=== PATIENT | male | born 1990 | race Caucasian/White ===

== ENCOUNTER 2016-11-13 15:19 | Emergency (ER) | payer SELFPAY ==
--- NOTE | 2016-11-13 15:32 | ER Document Report ---
ED Medical Screen (RME) - General Stated Complaint: LEFT EYE PAIN Notes: 26 yo male c/o left eye pain since yesterday. + body welder's flash. + tearing. + photosensitivity. noncontact wearer. no sig PMHx. TRAVEL OUTSIDE OF THE [place] IN LAST 30 DAYS: No - Related Data Allergies/Adverse Reactions: No Known Allergies Allergy (Verified 11/13/16 15:30) Past Medical History Musculoskeltal Medical History: Reports Hx Musculoskeletal Deformity, Reports Hx Musculoskeletal Trauma Psychiatric Medical History: Reports: Hx Anxiety, Hx Attention Deficit Hyperactivity Disorder, Hx Bipolar Disorder, Hx Depression Traumatic Medical History: Reports: Hx Fractures - coccyx Past Surgical History: Reports: Hx Orthopedic Surgery - Immunizations Immunizations up to date: Yes Hx Diphtheria, Pertussis, Tetanus Vaccination: Yes Physical Exam - Vital signs Vitals: Temp Pulse Resp BP Pulse Ox 98.0 F 108 H 16 113/68 98 11/13/16 15:28 11/13/16 15:28 11/13/16 15:28 11/13/16 15:28 11/13/16 15:28 Course - Vital Signs Vital signs: Temp Pulse Resp BP Pulse Ox 98.0 F 108 H 16 113/68 98 11/13/16 15:28 11/13/16 15:28 11/13/16 15:28 11/13/16 15:28 11/13/16 15:28
[2016-11-13] MEDS ORDERED: OXYCODONE-ACETAMINOPHEN 5-325 MG TABLET PO ONE (15:41)
--- NOTE | 2016-11-13 17:56 | ER Document Report ---
ED Eye Complaint - General Chief Complaint: Eye Injury Stated Complaint: LEFT EYE PAIN Notes: This is a 26-year-old male that presents today with left eye pain. He states that yesterday around 1500 in the afternoon he was helping a friend weld car. He states that he looked at the moment his friend started to weld only with his left eye. He admits to light sensitivity, burning, and itching. Constant 6 out of 10 pain. He denies foreign body sensation. He is not a contact lens wearer. He admits to blurred vision in the left eye. TRAVEL OUTSIDE OF THE [place] IN LAST 30 DAYS: No - Related Data Allergies/Adverse Reactions: hydrocodone Allergy (Verified 11/13/16 15:35) alexey hips Allergy (Verified 11/13/16 15:35) Bee Sting Allergy (Uncoded 11/13/16 15:35) Past Medical History - General Information source: Patient - Social History Smoking Status: Current Every Day Smoker Chew tobacco use (# tins/day): No Frequency of alcohol use: None Drug Abuse: Marijuana Family History: Reviewed & Not Pertinent Patient has suicidal ideation: No Patient has homicidal ideation: No Renal/ Medical History: Denies: Hx Peritoneal Dialysis Musculoskeltal Medical History: Reports Hx Musculoskeletal Deformity, Reports Hx Musculoskeletal Trauma Psychiatric Medical History: Reports: Hx Anxiety, Hx Attention Deficit Hyperactivity Disorder, Hx Bipolar Disorder, Hx Depression Traumatic Medical History: Reports: Hx Fractures - coccyx Past Surgical History: Reports: Hx Orthopedic Surgery - Immunizations Immunizations up to date: Yes Hx Diphtheria, Pertussis, Tetanus Vaccination: Yes Review of Systems - Review of Systems Constitutional: denies: Chills, Fever EENT: See HPI, Blurred vision Cardiovascular: No symptoms reported Respiratory: No symptoms reported Gastrointestinal: No symptoms reported Genitourinary: No symptoms reported Musculoskeletal: No symptoms reported Skin: No symptoms reported Hematologic/Lymphatic: No symptoms reported Neurological/Psychological: No symptoms reported Physical Exam - Vital signs Vitals: Temp Pulse Resp BP Pulse Ox 98.0 F 108 H 16 113/68 98 11/13/16 15:28 11/13/16 15:28 11/13/16 15:28 11/13/16 15:28 11/13/16 15:28 - General General appearance: Appears well In distress: None - HEENT Head: Normocephalic, Atraumatic Visual acuity- Right eye: 20/40 Visual acuity- Left eye: 20/100 Visual acuity- Both eyes: 20/50 Corrective lenses worn: No - Respiratory Respiratory status: No respiratory distress Chest status: Nontender Breath sounds: Normal. No: Rales, Rhonchi, Stridor, Wheezing - Cardiovascular Rhythm: Regular Heart sounds: Normal auscultation - Abdominal Bowel sounds: Normal Tenderness: Nontender - Extremities General upper extremity: Normal inspection General lower extremity: Normal inspection - Neurological Cognition: Normal. No: Confused - Psychological Associated symptoms: Normal affect, Normal mood - Skin Skin Temperature: Warm Skin Moisture: Dry Skin Color: Normal Course - Re-evaluation Re-evalutation: 11/13/16 18:26 Wood's lamp was done on the left eye. No corneal patient or ulcer was seen. No foreign bodies seen on exam. Patient was advised to follow-up with flight manager. He stated that he would. - Vital Signs Vital signs: Temp Pulse Resp BP Pulse Ox 98.2 F 64 16 84/45 L 95 11/13/16 18:52 11/13/16 18:52 11/13/16 15:28 11/13/16 18:52 11/13/16 18:52 Discharge - Discharge Clinical Impression: Pain, eye, left Condition: Good Disposition: HOME, SELF-CARE Additional Instructions: Return to the emergency department if symptoms worsen. Follow-up with primary care physician as soon as possible. Prescriptions: Besifloxacin HCl [Besivance 0.6% Oph Susp 5 ml] 1 drop OP TID #1 bottle Referrals: [facility] [Provider Group] - Follow up as needed
[2016-11-13 19:16] VITALS: BP 84/45
== END 2016-11-13 18:53 | disposition home or self-care (01) ==
LOC: ER 15:19
DX: H57.12 Ocular pain, left eye (principal); H53.149 Visual discomfort, unspecified; H53.8 Other visual disturbances; L29.8 Other pruritus; F17.200 Nicotine dependence, unspecified, uncomplicated; Z88.5 Allergy status to narcotic agent; Z91.030 Bee allergy status
CPT/HCPCS: 70480; 99283

== ENCOUNTER 2017-03-13 10:06 | Emergency (ER) | payer OTHER ==
[2017-03-13 10:14] VITALS: BP 118/98
[2017-03-13] MEDS ORDERED: PROCHLORPERAZINE MALEATE 10 MG TABLET PO ONE (10:51)
[2017-03-13] MEDS ORDERED: DIPHENHYDRAMINE HCL 50 MG CAPSULE PO ONE (10:51)
[2017-03-13] MEDS ORDERED: IBUPROFEN 800 MG TABLET PO ONE (10:51)
--- NOTE | 2017-03-13 10:51 | ER Document Report ---
ED Headache - General Mode of Arrival: Ambulatory Information source: Patient TRAVEL OUTSIDE OF THE [place] IN LAST 30 DAYS: No - HPI Patient complains to provider of: Headache Associated symptoms: Other - See above <LEONA RINCON - Last Filed: 03/13/17 12:24> <SHALOM GRAMAJO - Last Filed: 03/13/17 21:32> - General Chief Complaint: Headache Stated Complaint: HEADACHE Time Seen by Provider: 03/13/17 10:41 Notes: Patient is a 26 year old male, with a past medical history including anxiety, who presents to the emergency department complaining of a headache onset 3 weeks ago. Patient reports that the pain is located in the back of his head and sometimes moves to behind his eyes, the headaches generally start in the morning and wll subsided for a time in the afternoon before coming back before bed. Patient states he has had similar headaches in the past but they were due to trauma. Patient reports that marijuana and Ibuprofen help with the pain. Patient also complains of numbness in his right middle fingertip. Patient recently started taking Adderall 25mg 2 weeks ago but reports he has taken it in the past and had no side effects. (LEONA RINCON) - Related Data Allergies/Adverse Reactions: hydrocodone Allergy (Verified 03/13/17 10:37) alexey hips Allergy (Verified 03/13/17 10:37) Bee Sting Allergy (Uncoded 03/13/17 10:37) Past Medical History - General Information source: Patient - Social History Smoking Status: Current Every Day Smoker Chew tobacco use (# tins/day): No Frequency of alcohol use: None Drug Abuse: Marijuana Family History: Reviewed & Not Pertinent Patient has suicidal ideation: No Patient has homicidal ideation: No Renal/ Medical History: Denies: Hx Peritoneal Dialysis Musculoskeltal Medical History: Reports Hx Musculoskeletal Deformity, Reports Hx Musculoskeletal Trauma Psychiatric Medical History: Reports: Hx Anxiety, Hx Attention Deficit Hyperactivity Disorder, Hx Bipolar Disorder, Hx Depression Traumatic Medical History: Reports: Hx Fractures - coccyx Past Surgical History: Reports: Hx Orthopedic Surgery - Immunizations Immunizations up to date: Yes Hx Diphtheria, Pertussis, Tetanus Vaccination: Yes <LEONA RINCON - Last Filed: 03/13/17 12:24> Review of Systems - Review of Systems Constitutional: No symptoms reported EENT: No symptoms reported Cardiovascular: No symptoms reported Respiratory: No symptoms reported Gastrointestinal: No symptoms reported Genitourinary: No symptoms reported Male Genitourinary: No symptoms reported Musculoskeletal: No symptoms reported Skin: No symptoms reported Hematologic/Lymphatic: No symptoms reported Neurological/Psychological: See HPI, Headaches, Numbness -: Yes All other systems reviewed and negative <LEONA RINCON - Last Filed: 03/13/17 12:24> Physical Exam - Vital signs Interpretation: Normal - HEENT Head: Normocephalic, Atraumatic Eyes: Normal Extraocular movements intact: Yes - Respiratory Respiratory status: No respiratory distress Chest status: Nontender Breath sounds: Normal Chest palpation: Normal - Cardiovascular Rhythm: Regular Heart sounds: Normal auscultation - Back Back: Normal - Extremities General upper extremity: Other - Splint on right 5th finger General lower extremity: Normal inspection - Neurological Neuro grossly intact: Yes Cognition: Normal Orientation: AAOx4 Adalberto Coma Scale Eye Opening: Spontaneous [place] Coma Scale Verbal: Oriented [place] Coma Scale Motor: Obeys Commands Adalberto Coma Scale Total: 15 Speech: Normal Cranial nerves: Normal Cerebellar coordination: Normal Motor strength normal: LUE, RUE, LLE, RLE Additional motor exam normals: Equal blanket binder Knee - Reflex grade: 2 = Normal <LEONA RINCON - Last Filed: 03/13/17 12:24> - Abdominal Inspection: Normal Distension: No distension - Skin Skin Temperature: Warm Skin Moisture: Dry Skin Color: Normal <SHALOM GRAMAJO - Last Filed: 03/13/17 21:32> - Vital signs Vitals: Temp Pulse BP Pulse Ox 97.8 F 106 H 118/98 H 97 03/13/17 10:13 03/13/17 10:13 03/13/17 10:13 03/13/17 10:13 Course <LEONA RINCON - Last Filed: 03/13/17 12:24> <SHALOM GRAMAJO - Last Filed: 03/13/17 21:32> - Re-evaluation Re-evalutation: 03/13/17 10:53 Classic presentation of cluster headaches in this 26-year-old male who has a headache on setting on the same side of his head going to behind his right eye every day at the same time and then resolving with sleep. No abnormal neurologic symptoms at this time that can be linked to the headache, no change in vision since the presentation of the headache, no head injury, the reported numbness to the distal tip of his third digit on his right hand is spurious and does not correlate with any known headache pattern. Patient was offered injections of Toradol, Compazine and Benadryl to treat this headache, states that he does not want any shots whatsoever. Patient will be treated with pills, does not wish to wait to see if they are effective. Patient will return for fevers, worsening headache, new neurologic symptoms, difficulty speaking or walking and return for stiff neck as well. (SHALOM GRAMAJO) - Vital Signs Vital signs: Temp Pulse Resp BP Pulse Ox 97.8 F 106 H 118/98 H 97 03/13/17 10:13 03/13/17 10:13 03/13/17 10:13 03/13/17 10:13 Discharge <LEONA RINCON - Last Filed: 03/13/17 12:24> <SHALOM GRAMAJO - Last Filed: 03/13/17 21:32> - Discharge Clinical Impression: Cluster headache, intractable Condition: Stable Disposition: HOME, SELF-CARE Instructions: Cluster Headache ([facility]) Additional Instructions: Please return for worsening headache, any fever, stiff neck, difficulty speaking , or any difficulty moving your arms or your leg. Scribe Attestation: 03/13/17 21:32 I personally performed the services described in the documentation, reviewed and edited the documentation which was dictated to the scribe in my presence, and it accurately records my words and actions. (SHALOM GRAMAJO) Scribe Documentation - Scribe Written by Christianne:: christianne Mann, 03/13/17, 1238 acting as scribe for :: Naomi <LEONA RINCON - Last Filed: 03/13/17 12:24>
== END 2017-03-13 11:30 | disposition home or self-care (01) ==
LOC: ER 10:06
DX: G44.89 Other headache syndrome (principal); R20.0 Anesthesia of skin; F41.9 Anxiety disorder, unspecified; F17.200 Nicotine dependence, unspecified, uncomplicated; Z91.030 Bee allergy status
CPT/HCPCS: 99283; S0183

== ENCOUNTER 2017-04-23 14:54 | Emergency (ER) | payer OTHER ==
[2017-04-23 15:06] VITALS: BP 107/71
[2017-04-23] MEDS ORDERED: ONDANSETRON 4 MG TAB.RAPDIS PO ONE (15:13)
[2017-04-23] MEDS ORDERED: OXYCODONE-ACETAMINOPHEN 5-325 MG TABLET PO ONE (15:15)
--- NOTE | 2017-04-23 15:16 | ER Document Report ---
ED Medical Screen (RME) - General Chief Complaint: Abdominal Pain Stated Complaint: ABDOMINAL PAIN Time Seen by Provider: 04/23/17 15:12 Mode of Arrival: Ambulatory Information source: Patient Notes: This is a 26-year-old man with a history of schizophrenia, bipolar affective disorder who presents to the emergency room with left CVA tenderness and left lower quadrant tenderness since last night. The patient does state that he has had pink colored urine. He denies any fever, chills TRAVEL OUTSIDE OF THE [place] IN LAST 30 DAYS: No - HPI Onset: Just prior to arrival Onset/Duration: Sudden Quality of pain: Dull Severity: Moderate Pain Level: 4 Associated Symptoms: Nausea. denies: Chills, Fever, Shortness of breath, Sinus pain/drainage Exacerbated by: Denies Relieved by: Denies Similar symptoms previously: No Recently seen / treated by doctor: No - Related Data Smoking: Non-smoker Frequency of alcohol use: None Drug Abuse: None Allergies/Adverse Reactions: hydrocodone Allergy (Verified 04/23/17 14:59) alxeey hips Allergy (Verified 04/23/17 14:59) Bee Sting Allergy (Uncoded 04/23/17 14:59) Past Medical History - General Information source: Patient - Social History Cigarette use (# per day): No Chew tobacco use (# tins/day): No Frequency of alcohol use: None Drug Abuse: None Lives with: Family Family history: Reviewed & Not Pertinent - Medical History Medical History: Negative Renal/ Medical History: Denies: Hx Peritoneal Dialysis Musculoskeltal Medical History: Reports Hx Musculoskeletal Deformity, Reports Hx Musculoskeletal Trauma Psychiatric Medical History: Reports: Hx Anxiety, Hx Attention Deficit Hyperactivity Disorder, Hx Bipolar Disorder, Hx Depression Traumatic Medical History: Reports: Hx Fractures - coccyx Past Surgical History: Reports: Hx Orthopedic Surgery - Immunizations Immunizations up to date: Yes Hx Diphtheria, Pertussis, Tetanus Vaccination: Yes Review of Systems - Review of Systems Constitutional: denies: Chills, Fever EENT: No symptoms reported Cardiovascular: No symptoms reported Respiratory: No symptoms reported Gastrointestinal: No symptoms reported Genitourinary: No symptoms reported Male Genitourinary: No symptoms reported Musculoskeletal: No symptoms reported Skin: No symptoms reported Hematologic/Lymphatic: No symptoms reported Neurological/Psychological: No symptoms reported Physical Exam - Vital signs Vitals: Temp Pulse Resp BP Pulse Ox 98.0 F 76 14 107/71 98 06/21/17 15:00 04/23/17 15:00 04/23/17 15:00 04/23/17 15:00 04/23/17 15:00 Notes: Physical exam: GENERAL:-year-old man, alert and oriented 3, chills and vomiting and appears in distress. HEAD: Atraumatic, normocephalic. EYES: Pupils equal round and reactive to light, extraocular movements intact, sclera anicteric, conjunctiva are normal. ENT: TMs normal, nares patent, oropharynx clear without exudates. Moist mucous membranes. NECK: Normal range of motion, supple without lymphadenopathy or JVD. LUNGS: Breath sounds clear to auscultation bilaterally and equal. No wheezes rales or rhonchi. HEART: Regular rate and rhythm without murmurs, rubs or gallops. ABDOMEN: Soft, normoactive bowel sounds. CVA tenderness. no guarding, no rebound. No masses appreciated. EXTREMITIES: Normal range of motion, no pitting or edema. No clubbing or cyanosis. NEUROLOGICAL: Cranial nerves II through XII grossly intact. Normal speech, normal gait. PSYCH: Normal mood, normal affect. SKIN: Warm, Dry, normal turgor, no rashes or lesions noted. Course - Vital Signs Vital signs: Temp Pulse Resp BP Pulse Ox 98.0 F 76 14 107/71 98 04/23/17 15:00 04/23/17 15:00 04/23/17 15:00 04/23/17 15:00 04/23/17 15:00 - Laboratory Laboratory results interpreted by me: 04/23/17 16:36 Urine Protein 100 H Urine Ketones TRACE H Urine Blood LARGE H Urine Nitrite POSITIVE H - Diagnostic Test Radiology reviewed: Image reviewed, Reports reviewed - The abdomen shows a left mid ureter. 0.2 mm kidney stone. There is mild hydronephrosis and mild hydroureter Doctor's Discharge - Discharge Clinical Impression: Left ureter stone Condition: Stable Disposition: HOME, SELF-CARE Instructions: Kidney Stone ([facility]) Additional Instructions: Recommendations: Rest, drink plenty of fluids. Pain medicine as prescribed Nausea medicine as needed To the emergency room for worsening pain, fever (temperature greater than 100.5 ) or concerns or getting worse. These stones may take 1-2 weeks for complete passage. Prescriptions: Oxycodone HCl/Acetaminophen [Percocet 5-325 mg Tablet] 1 - 2 tab PO ASDIR PRN # 25 tablet PRN Reason: Promethazine HCl [Phenergan 25 mg Tablet] 25 mg PO Q6H PRN #15 tablet PRN Reason: Referrals: CHELA CORNELIUS MD [GENEVIEVE CAMACHO] - Follow up as needed (This is the number for the urologist who deals with kidney stones. He is affiliated with this [facility].)
--- NOTE | 2017-04-23 16:19 | RADIOLOGY REPORT (SQ) ---
EXAM DESCRIPTION: CT LTD RENAL STONE PROTOCOL ON COMPLETED DATE/TIME: 04/23/2017 3:38 pm REASON FOR STUDY: left flank pain COMPARISON: None. TECHNIQUE: CT scan of the abdomen and pelvis performed without intravenous or oral contrast. Images reviewed with lung, soft tissue, and bone windows. Reconstructed coronal and sagittal MPR images revi ewed. All images stored on PACS. All CT scanners at this facility use dose modulation, iterative reconstruction, and/or weight based d osing when appropriate to reduce radiation dose to as low as reasonably achievable (ALARA). [facility]: Dose Right [facility]: CareDose [facility]: Dose Right [facility]: Teradose 4D [facility]: Smart [employer] RADIATION DOSE: Up-to-date CT equipment and radiation dose reduction techniques were employed. CTDIv ol: 4.8 mGy. DLP: 259 mGy-cm.mGy. LIMITATIONS: None. FINDINGS: LOWER CHEST: No significant findings. No nodules or infiltrates. NON-CONTRASTED LIVER, SPLEEN, ADRENALS: Evaluation limited by lack of IV contrast. No identified sign ificant masses. PANCREAS: No masses. No peripancreatic inflammatory changes. GALLBLADDER: No identified stones by CT criteria. No inflammatory changes to suggest cholecystitis. RIGHT KIDNEY AND URETER: No suspicious masses. Assessment limited by lack of IV contrast. No signif icant calcifications. No hydronephrosis or hydroureter. LEFT KIDNEY AND URETER: No suspicious masses. Assessment limited by lack of IV contrast. There is a 4.2 mm proximal and mid left ureteral stone. There is mild left-sided hydronephrosis. AORTA AND RETROPERITONEUM: No aneurysm. No retroperitoneal masses or adenopathy. BOWEL AND PERITONEAL CAVITY: No obvious masses or inflammatory changes. No free fluid. APPENDIX: Normal. PELVIS, BLADDER, AND ABDOMINAL WALL:No abnormal masses. No free fluid. Bladder normal. BONES: No significant findings. OTHER: No other significant finding. IMPRESSION: 4.2 mm proximal to mid left ureteral stone with mild left-sided hydronephrosis. TECHNICAL DOCUMENTATION: JOB ID: [id number] Quality ID # [id number]: Final reports with documentation of one or more dose reduction techniques (e.g., Au tomated exposure control, adjustment of the mA and/or kV according to patient size, use of iterative reconstruction technique) 2010 [employer]- All Rights Reserved
[2017-04-23 17:08] LABS: APPEARANCE,URINE CLOUDY; BILIRUBIN,URINE NEGATIVE (NEGATIVE); CALCIUM OXALATE CRYSTALS,URINE RARE /HPF; GLUCOSE, URINE NEGATIVE (NEGATIVE); KETONES,URINE TRACE mg/dL (NEGATIVE); LEUKOCYTE ESTERASE,URINE NEGATIVE (NEGATIVE); NITRITE,URINE POSITIVE (NEGATIVE); PROTEIN,URINE 100 mg/dL (NEGATIVE); URINE SPECIFIC GRAVITY 1.021; UROBILINOGEN,URINE NEGATIVE mg/dL (<2.0)
[2017-04-23] MEDS ORDERED: ONDANSETRON ODT 4 MG TAB (6 TAB/DSPK) PO PRN (17:56)
== END 2017-04-23 18:11 | disposition home or self-care (01) ==
LOC: ER 14:54
DX: N20.1 Calculus of ureter (principal); F20.9 Schizophrenia, unspecified; F31.9 Bipolar disorder, unspecified; R10.32 Left lower quadrant pain
CPT/HCPCS: 99284; 81001; 76380; S0119

== ENCOUNTER 2017-05-11 17:07 | Emergency (ER) | payer OTHER ==
[2017-05-11] MEDS ORDERED: KETOROLAC TROMETHAMINE 60 MG/2 ML SDV IM ONE (17:36)
[2017-05-11] MEDS ORDERED: HYDROMORPHONE HCL INJ/PF 2 MG/ML AMPULE IM ONE (17:36)
--- NOTE | 2017-05-11 17:37 | ER Document Report ---
ED Medical Screen (RME) - General Chief Complaint: Possible Kidney Stone Stated Complaint: FLANK PAIN Time Seen by Provider: 05/11/17 17:20 Notes: 26-year-old male recent diagnosis of a 4.2 mm stone presents with complaints of sudden pain, patient notes it is difficult to urinate. Denies any fevers or chills nausea vomiting or diarrhea I have greeted and performed a rapid initial assessment of this patient. A comprehensive ED assessment and evaluation of the patient, analysis of test results and completion of the medical decision making process will be conducted by additional ED providers. PHYSICAL EXAMINATION: GENERAL: Well-appearing, well-nourished and in moderate distress HEAD: Atraumatic, normocephalic. EYES: Pupils equal round extraocular movements intact, conjunctiva are normal. ENT: Nares patent NECK: Normal range of motion LUNGS: No respiratory distress Musculoskeletal: Normal range of motion NEUROLOGICAL: Normal speech, normal gait. PSYCH: Normal mood, normal affect. SKIN: Warm, Dry, normal turgor, no rashes or lesions noted. TRAVEL OUTSIDE OF THE [place] IN LAST 30 DAYS: No - Related Data Allergies/Adverse Reactions: hydrocodone Allergy (Verified 04/23/17 14:59) alexey hips Allergy (Verified 04/23/17 14:59) Bee Sting Allergy (Uncoded 04/23/17 14:59) Past Medical History - Social History Family history: Reviewed & Not Pertinent Renal/ Medical History: Denies: Hx Peritoneal Dialysis Musculoskeltal Medical History: Reports Hx Musculoskeletal Deformity, Reports Hx Musculoskeletal Trauma Psychiatric Medical History: Reports: Hx Anxiety, Hx Attention Deficit Hyperactivity Disorder, Hx Bipolar Disorder, Hx Depression Traumatic Medical History: Reports: Hx Fractures - coccyx Past Surgical History: Reports: Hx Orthopedic Surgery - Immunizations Immunizations up to date: Yes Hx Diphtheria, Pertussis, Tetanus Vaccination: Yes Physical Exam - Vital signs Vitals: Temp Pulse Resp BP Pulse Ox 98 F 105 H 20 119/76 97 05/11/17 17:10 05/11/17 17:10 05/11/17 17:10 05/11/17 17:10 05/11/17 17:10 Course - Vital Signs Vital signs: Temp Pulse Resp BP Pulse Ox 98 F 105 H 20 119/76 97 05/11/17 17:10 05/11/17 17:10 05/11/17 17:10 05/11/17 17:10 05/11/17 17:10
[2017-05-11] MEDS ORDERED: OXYCODONE-ACETAMINOPHEN 5-325 MG TABLET PO ONE (18:26)
--- NOTE | 2017-05-11 18:26 | ER Document Report ---
ED GI/ - General Chief Complaint: Possible Kidney Stone Stated Complaint: FLANK PAIN Time Seen by Provider: 05/11/17 17:20 Mode of Arrival: Ambulatory Information source: Patient Notes: Is a 26-year-old man with a history of a 4.2 mm ureter stone that presents to the emergency room pain this morning. The patient states it was down in the left lower quadrant radiating to the penis. He feels it is quite low at this time. He last urinated shortly before coming to the ER. Any fever, chills, nausea or vomiting. TRAVEL OUTSIDE OF THE [place] IN LAST 30 DAYS: No - HPI Patient complains to provider of: Abdominal pain Onset: Just prior to arrival Timing/Duration: Sudden Quality of pain: No pain Pain Level: Denies Location: LLQ Sexual history: Active Associated symptoms: None Exacerbated by: Denies Relieved by: Denies Similar symptoms previously: Yes Recently seen / treated by doctor: No - Related Data Allergies/Adverse Reactions: hydrocodone Allergy (Verified 04/23/17 14:59) alexey hips Allergy (Verified 04/23/17 14:59) Bee Sting Allergy (Uncoded 04/23/17 14:59) Past Medical History - General Information source: Patient - Social History Smoking Status: Unknown if Ever Smoked Cigarette use (# per day): Yes Chew tobacco use (# tins/day): No - Pack per day Frequency of alcohol use: None Drug Abuse: None Lives with: Family Family History: Reviewed & Not Pertinent Patient has suicidal ideation: No Patient has homicidal ideation: No - Medical History Medical History: Negative Renal/ Medical History: Denies: Hx Peritoneal Dialysis Musculoskeltal Medical History: Reports Hx Musculoskeletal Deformity, Reports Hx Musculoskeletal Trauma Psychiatric Medical History: Reports: Hx Anxiety, Hx Attention Deficit Hyperactivity Disorder, Hx Bipolar Disorder, Hx Depression Traumatic Medical History: Reports: Hx Fractures - coccyx Past Surgical History: Reports: Hx Orthopedic Surgery - Immunizations Immunizations up to date: Yes Hx Diphtheria, Pertussis, Tetanus Vaccination: Yes Review of Systems - Review of Systems Constitutional: denies: Chills, Fever EENT: No symptoms reported Cardiovascular: No symptoms reported Respiratory: No symptoms reported Gastrointestinal: See HPI Genitourinary: No symptoms reported Male Genitourinary: No symptoms reported Musculoskeletal: No symptoms reported Skin: No symptoms reported Hematologic/Lymphatic: No symptoms reported Neurological/Psychological: No symptoms reported Physical Exam - Vital signs Vitals: Temp Pulse Resp BP Pulse Ox 98 F 105 H 20 119/76 97 05/11/17 17:10 05/11/17 17:10 05/11/17 17:10 05/11/17 17:10 05/11/17 17:10 Notes: Physical exam: GENERAL:-year-old man, alert and oriented 3, no acute distress HEAD: Atraumatic, normocephalic. EYES: Pupils equal round and reactive to light, extraocular movements intact, sclera anicteric, conjunctiva are normal. ENT: Moist mucous membranes. NECK: Normal range of motion, supple without lymphadenopathy or JVD. LUNGS: Breath sounds clear to auscultation bilaterally and equal. No wheezes rales or rhonchi. HEART: Regular rate and rhythm without murmurs, rubs or gallops. ABDOMEN: Soft, normoactive bowel sounds. No tenderness to palpation. No guarding, no rebound. No masses appreciated. EXTREMITIES: Normal range of motion, no pitting or edema. No clubbing or cyanosis. NEUROLOGICAL: Cranial nerves II through XII grossly intact. Normal speech, normal gait. PSYCH: Normal mood, normal affect. SKIN: Warm, Dry, normal turgor, no rashes or lesions noted. Ultrasound: No hydronephrosis. The bladder is empty at this time. It is difficult to visualize whether there is a bladder stone. Course - Re-evaluation Re-evalutation: 05/11/17 18:34 Note: I did offer the patient IV fluids with pain medicine. He said he is deathly afraid of needles and does not want them. He states that he will continue to drink p.o. fluids. I have had a long conversation with him about that. He is able to urinate and I do not see any evidence of an obstructive uropathy, so we will try to manage this patient as an outpatient. A 4 mm stone I discussed with him should pass without any intervention. I have given him follow-up number for urologist and he [facility] - Vital Signs Vital signs: Temp Pulse Resp BP Pulse Ox 98 F 105 H 20 119/76 97 05/11/17 17:10 05/11/17 17:10 05/11/17 17:10 05/11/17 17:10 05/11/17 17:10 Discharge - Discharge Clinical Impression: Kidney stone Condition: Stable Disposition: HOME, SELF-CARE Additional Instructions: As we discussed: Take ibuprofen 400 mg every 6 hours Take the Percocet as needed for pain. Your to drink plenty of fluids. You can have coffee: Make sure you drink plenty of water before hand. The ER if you are unable to urinate or if you feel you are having worsening pain. The pain medicine you're taking prescribed as a narcotic. There are several important things you should know about this medicine: 1. This medicine contains Tylenol: It is important that you do not take Tylenol (or acetaminophen) while on this medicine. Tylenol is metabolized by the liver and taking too much Tylenol (acetaminophen) can lay to liver damage and even liver failure. 2. Taking narcotics for too long can lead to physical and mental dependence. Take this medicine only if really needed and in the lowest quantity to achieve pain relief. 3. Do not drink alcohol while on this medicine. Alcohol interacts with narcotics and the combination can be dangerous. 4. Do not drive or operate machinery while on this medicine. 5. Narcotics do cause constipation, so drink plenty of fluids and daily stool softeners. It is recommended that you follow-up with a urologist: [facility] [place] [facility] [address] [place], [place] [phone] [place] [facility] [address]. [place], [place] [phone] Prescriptions: Oxycodone HCl/Acetaminophen [Percocet 5-325 mg Tablet] 1 - 2 tab PO ASDIR PRN # 25 tablet PRN Reason: Referrals: [facility] [Provider Group] - Follow up as needed
[2017-05-11 19:52] VITALS: BP 118/74
== END 2017-05-11 18:35 | disposition home or self-care (01) ==
LOC: ER 17:07
DX: N20.0 Calculus of kidney (principal); R10.32 Left lower quadrant pain; Z91.030 Bee allergy status; Z88.5 Allergy status to narcotic agent; Z72.0 Tobacco use
CPT/HCPCS: 99283

== ENCOUNTER 2017-05-28 14:05 | Emergency (ER) | payer OTHER ==
[2017-05-28 14:15] VITALS: BP 113/67
[2017-05-28] MEDS ORDERED: IBUPROFEN 600 MG TABLET PO ONE (14:29)
[2017-05-28] MEDS ORDERED: OXYCODONE-ACETAMINOPHEN 5-325 MG TABLET PO ONE (14:30)
--- NOTE | 2017-05-28 14:33 | ER Document Report ---
ED General - General Chief Complaint: Flank Pain Stated Complaint: FLANK PAIN Time Seen by Provider: 05/28/17 14:29 Information source: Patient Notes: Patient states he has a history of kidney stones. He states he started yesterday with left flank pain that radiates into his testicle. It is severe and sharp. It is constant. It does feel like previous kidney stone pain. Some nausea no vomiting or diarrhea. No rashes or trauma. TRAVEL OUTSIDE OF THE [place] IN LAST 30 DAYS: No - Related Data Allergies/Adverse Reactions: hydrocodone Allergy (Verified 05/28/17 14:12) alexey hips Allergy (Verified 05/28/17 14:12) Bee Sting Allergy (Uncoded 05/28/17 14:12) Home Medications: Current Home Medications Cariprazine Hydrochloride [Vraylar] 3 mg PO DAILY 05/28/17 [History] Quetiapine Fumarate [Seroquel] 300 mg PO DAILY 05/28/17 [History] Past Medical History - General Information source: Patient - Social History Smoking Status: Current Every Day Smoker Frequency of alcohol use: Occasional Drug Abuse: None Family History: Reviewed & Not Pertinent Renal/ Medical History: Denies: Hx Peritoneal Dialysis Musculoskeltal Medical History: Reports Hx Musculoskeletal Deformity, Reports Hx Musculoskeletal Trauma Psychiatric Medical History: Reports: Hx Anxiety, Hx Attention Deficit Hyperactivity Disorder, Hx Bipolar Disorder, Hx Depression Traumatic Medical History: Reports: Hx Fractures - coccyx Past Surgical History: Reports: Hx Orthopedic Surgery - Immunizations Immunizations up to date: Yes Hx Diphtheria, Pertussis, Tetanus Vaccination: Yes Review of Systems - Review of Systems Constitutional: denies: Chills, Fever Cardiovascular: denies: Chest pain, Palpitations Respiratory: denies: Cough, Short of breath Gastrointestinal: Abdominal pain, Nausea Genitourinary: Burning -: Yes All other systems reviewed and negative Physical Exam - Vital signs Vitals: Temp Pulse Resp BP Pulse Ox 98.6 F 86 16 113/67 97 05/28/17 14:13 05/28/17 14:13 05/28/17 14:13 05/28/17 14:13 05/28/17 14:13 Interpretation: Normal - General General appearance: Appears well, Alert - HEENT Head: Normocephalic, Atraumatic Eyes: Normal Pupils: PERRL - Respiratory Respiratory status: No respiratory distress Chest status: Nontender Breath sounds: Normal Chest palpation: Normal - Cardiovascular Rhythm: Regular Heart sounds: Normal auscultation Murmur: No - Abdominal Inspection: Normal Distension: No distension Bowel sounds: Normal Tenderness: Tender - bilat lq tenderness, no rebound or guarding Organomegaly: No organomegaly - Back Back: Normal, Tender - bilat cva tenderness - Extremities General upper extremity: Normal inspection, Nontender, Normal color, Normal ROM , Normal temperature General lower extremity: Normal inspection, Nontender, Normal color, Normal ROM , Normal temperature, Normal weight bearing. No: Bryanna's sign - Neurological Neuro grossly intact: Yes Cognition: Normal Orientation: AAOx4 [place] Coma Scale Eye Opening: Spontaneous [place] Coma Scale Verbal: Oriented [place] Coma Scale Motor: Obeys Commands [place] Coma Scale Total: 15 Speech: Normal Motor strength normal: LUE, RUE, LLE, RLE Sensory: Normal - Psychological Associated symptoms: Normal affect, Normal mood - Skin Skin Temperature: Warm Skin Moisture: Dry Skin Color: Normal Course - Re-evaluation Re-evalutation: 05/28/17 15:55 pt delcined blood draw. pt understands risks of not being able to diagnose renal impairment, liver dz, infection, electrolyte abnormalities, and other pathology and understands these could lead to permanent disability or . - Vital Signs Vital signs: Temp Pulse Resp BP Pulse Ox 98.6 F 86 16 113/67 97 05/28/17 14:13 05/28/17 14:13 05/28/17 14:13 05/28/17 14:13 05/28/17 14:13 - Laboratory Laboratory results interpreted by me: 05/28/17 15:07 Urine Urobilinogen 2.0 H - Diagnostic Test Radiology reviewed: Image reviewed, Reports reviewed - no stone or acute process Discharge - Discharge Condition: Stable Disposition: HOME, SELF-CARE Instructions: Flank Pain ([facility]) Additional Instructions: No cause for your pain could be found on today's examination. It is possible you have already passed the stone. If you have any further problems with pain, fevers, vomiting or any concerns please return to the emergency department or to your primary care provider. Prescriptions: Oxycodone HCl/Acetaminophen [Percocet 5-325 mg Tablet] 1 - 2 tab PO Q4H PRN #6 tablet PRN Reason: Referrals: STANFORD HINES MD [ACTIVE STAFF] - Follow up as needed
[2017-05-28 15:20] LABS: APPEARANCE,URINE CLEAR; BILIRUBIN,URINE NEGATIVE (NEGATIVE); GLUCOSE, URINE NEGATIVE (NEGATIVE); KETONES,URINE NEGATIVE (NEGATIVE); LEUKOCYTE ESTERASE,URINE NEGATIVE (NEGATIVE); NITRITE,URINE NEGATIVE (NEGATIVE); PROTEIN,URINE NEGATIVE (NEGATIVE)
--- NOTE | 2017-05-28 15:49 | RADIOLOGY REPORT (SQ) ---
EXAM DESCRIPTION: CT ABD/PELVIS NO ORAL OR IV COMPLETED DATE/TIME: 05/28/2017 3:28 pm REASON FOR STUDY: hx stones, left flank pain COMPARISON: 04/23/2017. TECHNIQUE: CT scan of the abdomen and pelvis performed without intravenous or oral contrast. Images reviewed with lung, soft tissue, and bone windows. Reconstructed coronal and sagittal MPR images revi ewed. All images stored on PACS. All CT scanners at this facility use dose modulation, iterative reconstruction, and/or weight based d osing when appropriate to reduce radiation dose to as low as reasonably achievable (ALARA). [facility]: Dose Right [facility]: CareDose [facility]: Dose Right [facility]: Teradose 4D [facility]: [email or web address] RADIATION DOSE: Up-to-date CT equipment and radiation dose reduction techniques were employed. CTDIv ol: 4.8 mGy. DLP: 253 mGy-cm.mGy. LIMITATIONS: None. FINDINGS: LOWER CHEST: No significant findings. No nodules or infiltrates. NON-CONTRASTED LIVER, SPLEEN, ADRENALS: Evaluation limited by lack of IV contrast. No identified sign ificant masses. PANCREAS: No masses. No peripancreatic inflammatory changes. GALLBLADDER: No identified stones by CT criteria. No inflammatory changes to suggest cholecystitis. RIGHT KIDNEY AND URETER: No suspicious masses. Assessment limited by lack of IV contrast. No signif icant calcifications. No hydronephrosis or hydroureter. LEFT KIDNEY AND URETER: No suspicious masses. Assessment limited by lack of IV contrast. No signifi cant calcifications. No hydronephrosis or hydroureter. AORTA AND RETROPERITONEUM: No aneurysm. No retroperitoneal masses or adenopathy. BOWEL AND PERITONEAL CAVITY: No obvious masses or inflammatory changes. No free fluid. APPENDIX: Normal. PELVIS, BLADDER, AND ABDOMINAL WALL:No abnormal masses. No free fluid. Bladder normal. BONES: No significant findings. OTHER: No other significant finding. IMPRESSION: NO SIGNIFICANT OR ACUTE PROCESS IN THE ABDOMEN OR PELVIS. THE PREVIOUSLY SEEN LEFT URET ERAL CALCULUS IS NO LONGER PRESENT. TECHNICAL DOCUMENTATION: JOB ID: [id number] Quality ID # [id number]: Final reports with documentation of one or more dose reduction techniques (e.g., Au tomated exposure control, adjustment of the mA and/or kV according to patient size, use of iterative reconstruction technique) 2010 [employer]- All Rights Reserved
== END 2017-05-28 16:15 | disposition home or self-care (01) ==
LOC: ER 14:05
DX: R10.9 Unspecified abdominal pain (principal); R11.0 Nausea; F17.200 Nicotine dependence, unspecified, uncomplicated; Z87.442 Personal history of urinary calculi; Z88.5 Allergy status to narcotic agent; Z91.030 Bee allergy status
CPT/HCPCS: 74176; 81001; 99284

== ENCOUNTER 2017-11-27 15:21 | Emergency (ER) | payer OTHER ==
[2017-11-27 16:07] VITALS: BP 106/63
[2017-11-27] MEDS ORDERED: LIDOCAINE 5% (700 MG) TRANSDERMAL ADH..PATCH TP ONE (17:00)
[2017-11-27] MEDS ORDERED: OXYCODONE-ACETAMINOPHEN 5-325 MG TABLET PO ONE (17:00)
--- NOTE | 2017-11-27 17:02 | ER Document Report ---
HPI - HPI Patient complains to provider of: back pain Onset: This afternoon Onset/Duration: Sudden Quality of pain: Sharp Pain Level: 5 Context: Patient states he was using a saw to cut a tree into multiple smaller segments. Patient states that he bent over to pick this saw up and had a sudden sharp pain in his lower back. Patient denies any radiculopathy at this time. Patient without any urinary retention or incontinence. Patient does report a history of low back pain in the past but states it is not typically this severe. Associated Symptoms: Other - Low back pain. denies: Fever, Headache Exacerbated by: Movement Relieved by: Denies Similar symptoms previously: Yes Recently seen / treated by doctor: No - ROS ROS below otherwise negative: Yes Systems Reviewed and Negative: Yes All other systems reviewed and negative - CONSTITUTIONAL Constitutional: DENIES: Fever, Chills - NEURO Neurology: DENIES: Weakness - REPRODUCTIVE Reproductive: DENIES: : - MUSCULOSKELETAL Musculoskeletal: REPORTS: Back Pain. DENIES: Extremity pain - DERM Skin Color: Normal Skin Problems: None Past Medical History - General Information source: Patient - Social History Smoking Status: Never Smoker Frequency of alcohol use: None Drug Abuse: Marijuana Occupation: none Lives with: Family Family History: Reviewed & Not Pertinent - Medical History Medical History: Other - Leg length discrepancy Renal/ Medical History: Denies: Hx Peritoneal Dialysis Musculoskeltal Medical History: Reports Hx Musculoskeletal Deformity, Reports Hx Musculoskeletal Trauma Psychiatric Medical History: Reports: Hx Anxiety, Hx Attention Deficit Hyperactivity Disorder, Hx Bipolar Disorder, Hx Depression Traumatic Medical History: Reports: Hx Fractures - coccyx Past Surgical History: Reports: Hx Orthopedic Surgery - Immunizations Immunizations up to date: Yes Hx Diphtheria, Pertussis, Tetanus Vaccination: Yes Vertical Provider Document - CONSTITUTIONAL Agree With Documented VS: Yes Exam Limitations: No Limitations General Appearance: WD/WN, No Apparent Distress Notes: PHYSICAL EXAMINATION: GENERAL: Well-appearing and in no acute distress. HEAD: Atraumatic, normocephalic. EYES: sclera clear, anicteric, conjunctiva are normal. ENT: nares patent, Moist mucous membranes. NECK: Normal range of motion, supple no lymphadenopathy LUNGS: respirations unlabored HEART: Regular rate and rhythm without murmurs EXTREMITIES: Normal range of motion, no pitting or edema. No cyanosis. Gait normal, pt ambulates without difficulty BACK: Lower lumbar paraspinal tenderness, lumbar midline tenderness, no deformities or step-offs. No CVA tenderness. NEUROLOGICAL: Cranial nerves grossly intact. Normal speech, normal gait. No saddle anesthesia. 2+ bilateral patellar reflexes, negative straight leg test bilaterally PSYCH: Normal mood, normal affect. SKIN: Warm, Dry, normal turgor, no rashes or lesions noted. - INFECTION CONTROL TRAVEL OUTSIDE OF THE [place] IN LAST 30 DAYS: No - RESPIRATORY O2 Sat by Pulse Oximetry: 96 Course - Re-evaluation Re-evalutation: 11/27/17 17:57 The patient presents with low back pain without signs of spinal cord compression , cauda equina syndrome, infection, aneurysm, or other serious etiology. The patient is neurologically intact. Given the extremely risk of these diagnoses further testing and evaluation for these possibilities does not appear to be indicated at this time. Patient has been instructed to return if the symptoms worsen or change in any way. 11/27/17 17:58 Controlled substance database reviewed - Vital Signs Vital signs: Temp Pulse Resp BP Pulse Ox 98.0 F 101 H 18 106/63 96 11/27/17 16:06 11/27/17 16:06 11/27/17 16:06 11/27/17 16:06 11/27/17 16:06 - Diagnostic Test Radiology reviewed: Reports reviewed Discharge - Discharge Clinical Impression: Low back pain Qualifiers: Chronicity: unspecified Back pain laterality: midline Sciatica presence: without sciatica Qualified Code(s): M54.5 - Low back pain Condition: Stable Disposition: HOME, SELF-CARE Instructions: Ice Packs ([facility]), Low Back Pain ([facility]), Oral Narcotic Medication ( [facility]), Warm Packs ([facility]) Additional Instructions: Return immediately for any new or worsening symptoms Followup with your primary care provider, call tomorrow to make a followup appointment Do not take your pain medication Percocet with your Lorazepam, only take one medication or the other Prescriptions: Oxycodone HCl/Acetaminophen [Percocet 5-325 mg Tablet] 1 tab PO ASDIR PRN #12 tablet PRN Reason: Referrals: [facility] [Provider Group] - Follow up tomorrow
--- NOTE | 2017-11-27 17:50 | RADIOLOGY REPORT (SQ) ---
EXAM DESCRIPTION: L SPINE WHOLE COMPLETED DATE/TIME: 11/27/2017 5:41 pm REASON FOR STUDY: low back pain COMPARISON: September 2015 NUMBER OF VIEWS: Five views including obliques. TECHNIQUE: AP, lateral, oblique, and sacral radiographic images acquired of the lumbar spine. LIMITATIONS: None. FINDINGS: MINERALIZATION: Normal. SEGMENTATION: Normal. No transitional anatomy. ALIGNMENT: There is a minimal lumbar scoliosis convex to the left which may be positional in nature. VERTEBRAE: Maintained height. No fracture or worrisome bone lesion. DISCS: Preserved height. No significant osteophytes or end plate irregularity. POSTERIOR ELEMENTS: Pedicles and facets are intact. No pars defect or posterior arch defects. HARDWARE: None in the spine. PARASPINAL SOFT TISSUES: Normal. PELVIS: Intact as visualized. No fractures or worrisome bone lesions. SI joints intact. OTHER: No other significant finding. IMPRESSION: No significant vertebral compression or disc space reduction is seen. No significant de generative changes. Other findings as noted above TECHNICAL DOCUMENTATION: JOB ID: [id number]- All Rights Reserved
== END 2017-11-27 18:47 | disposition home or self-care (01) ==
LOC: ER 15:21
DX: M54.5 Low back pain (principal); M54.9 Dorsalgia, unspecified
CPT/HCPCS: 72110; 99283

== ENCOUNTER 2018-03-31 02:16 | Emergency (ER) | payer SELFPAY ==
--- NOTE | 2018-03-31 03:26 | ER Document Report ---
ED General - General Chief Complaint: Chest Pain Stated Complaint: CHEST PAIN Time Seen by Provider: 03/31/18 02:49 Notes: Patient is a 27-year-old male that comes emergency department for chief complaint of pain in his chest and an episode where he felt lightheaded like he was going to pass out. Patient rode to the emergency department with his friend to accompany them, he states that after he arrived he got lightheaded, walked out to the parking lot, threw up once, felt somewhat better but then checked in. He states sitting down in the bed now he has no symptoms. He admits to falling off a ladder 2 days ago and has pain over his ribs. He denies head injury, headache, abdominal pain. He states he is medicated with Ativan and trazodone for anxiety and insomnia. He smokes. He denies alcohol or recreational drugs. TRAVEL OUTSIDE OF THE [place] IN LAST 30 DAYS: No - Related Data Allergies/Adverse Reactions: hydrocodone Allergy (Verified 05/28/17 14:12) alexey hips Allergy (Verified 05/28/17 14:12) Bee Sting Allergy (Uncoded 05/28/17 14:12) Past Medical History - General Information source: Patient - Social History Smoking Status: Current Every Day Smoker Frequency of alcohol use: Occasional Drug Abuse: Marijuana Lives with: Friend Family History: Reviewed & Not Pertinent Renal/ Medical History: Denies: Hx Peritoneal Dialysis Musculoskeltal Medical History: Reports Hx Musculoskeletal Deformity, Reports Hx Musculoskeletal Trauma Psychiatric Medical History: Reports: Hx Anxiety, Hx Attention Deficit Hyperactivity Disorder, Hx Bipolar Disorder, Hx Depression Traumatic Medical History: Reports: Hx Fractures - coccyx Past Surgical History: Reports: Hx Orthopedic Surgery - Immunizations Immunizations up to date: Yes Hx Diphtheria, Pertussis, Tetanus Vaccination: Yes Review of Systems - Review of Systems Constitutional: No symptoms reported EENT: No symptoms reported Cardiovascular: See HPI Respiratory: See HPI Gastrointestinal: No symptoms reported Genitourinary: No symptoms reported Male Genitourinary: No symptoms reported Musculoskeletal: See HPI Skin: No symptoms reported Hematologic/Lymphatic: No symptoms reported Neurological/Psychological: No symptoms reported Physical Exam - Vital signs Vitals: Temp Pulse Resp BP Pulse Ox 98.4 F 83 16 95/42 L 97 03/31/18 02:31 03/31/18 02:31 03/31/18 02:31 03/31/18 02:31 03/31/18 02:31 - Notes Notes: GENERAL: Alert, interacts well. No acute distress. HEAD: Normocephalic, atraumatic. EYES: Pupils equal, round, and reactive to light. Extraocular movements intact. ENT: Oral mucosa slightly dry, tongue midline. Very poor dentition. NECK: Full range of motion. Supple. Trachea midline. LUNGS: Clear to auscultation bilaterally, no wheezes, rales, or rhonchi. No respiratory distress. Tenderness with palpation of the general chest wall, nonspecific, no crepitus, erythema, or other abnormality noted HEART: Regular rate and rhythm. No murmur ABDOMEN: Soft, non-tender. Non-distended. Bowel sounds present in all 4 quadrants. EXTREMITIES: Moves all 4 extremities spontaneously. No edema, normal radial and dorsalis pedis pulses bilaterally. No cyanosis. BACK: no cervical, thoracic, lumbar midline tenderness. No saddle anesthesia, normal distal neurovascular exam. NEUROLOGICAL: Alert and oriented x3. Normal speech. [cranial nerves II through XII grossly intact]. PSYCH: Patient is talkative, makes eye contact, laughs frequently SKIN: Warm, dry, normal turgor. No rashes or lesions noted. Pale Course - Re-evaluation Re-evalutation: Patient's initial blood pressure was low, repeat is unremarkable and normal. Is alert and talkative, he has chest wall pain generally with no signs of ecchymosis, no signs of trauma. Clear lungs, no tachycardia, normal neurological exam. Because of lightheaded episode and vomiting recommended laboratory workup, but patient refused. Recheck of blood pressure is normal. Patient is very thin. EKG shows 1 inverted T-wave but no T-wave his inversions in consecutive leads, no ST segment changes, unremarkable EKG and otherwise. Chest x-ray is unremarkable. Urinalysis does not show dehydration, glucose in the urine. Patient refuses a Accu-Chek in addition to the blood work he refused. Refuses IV for IVF. On reevaluation patient has no complaints except for the chest wall pain. He is asking to leave. I explained that I have a low suspicion of ACS, PE, dissection, and the remaining of his workup was unremarkable however I suspect he had low blood sugar or has low blood sugar although he is not allowing me to check. Patient admits that he eats terribly and rarely, states she will improve his eating, follow-up with primary care, and return for any concerning symptoms which were discussed. Provided with muscle relaxer for his chest wall. - Vital Signs Vital signs: Temp Pulse Resp BP Pulse Ox 98.7 F 83 15 98/71 L 98 03/31/18 03:55 03/31/18 02:31 03/31/18 03:55 03/31/18 03:55 03/31/18 03:55 Discharge - Discharge Clinical Impression: Chest pain of uncertain etiology, Chest wall pain Condition: Stable Disposition: HOME, SELF-CARE Additional Instructions: Your workup tonight does not show any concerning abnormalities. Your exam shows pain in your chest wall. Your symptoms earlier are suggestive of low blood sugar. You need to improve your eating habits and eat more frequently. Apply heat to your chest wall, rest, hydrate, take the muscle relaxer as prescribed if needed. Follow-up with primary care. Return for any concerning symptoms including difficulty breathing, worsening pain, fever, or any other concerning symptoms. Prescriptions: Methocarbamol [Robaxin 500 mg Tablet] 500 mg PO QID PRN #20 tablet PRN Reason:
--- NOTE | 2018-03-31 03:32 | RADIOLOGY REPORT (SQ) ---
EXAM DESCRIPTION: 2 views of the chest. CLINICAL HISTORY: chest pain COMPARISON: 09/21/2016 FINDINGS: Frontal and lateral views of the chest. The cardiomediastinal silhouette has normal size and contour. No consolidation, pneumothorax, or pleural effusion. Dextroconvex scoliosis of the lumbar spine. Leads overlie the chest. Upper abdominal soft tissues are unremarkable. IMPRESSION: 1. No acute pulmonary process identified.
[2018-03-31 03:34] LABS: APPEARANCE,URINE SLIGHTLY-CLOUDY; BILIRUBIN,URINE NEGATIVE (NEGATIVE); COLOR,URINE YELLOW; GLUCOSE, URINE NEGATIVE (NEGATIVE); KETONES,URINE NEGATIVE (NEGATIVE); LEUKOCYTE ESTERASE,URINE NEGATIVE (NEGATIVE); NITRITE,URINE NEGATIVE (NEGATIVE); PROTEIN,URINE NEGATIVE (NEGATIVE); URINE SPECIFIC GRAVITY 1.016; UROBILINOGEN,URINE NEGATIVE mg/dL (<2.0)
[2018-03-31 03:58] VITALS: BP 98/71
--- NOTE | 2018-03-31 09:02 | EKG REPORT ---
SEVERITY:- BORDERLINE ECG - SINUS RHYTHM PROBABLE LEFT ATRIAL ABNORMALITY BORDERLINE RIGHT AXIS DEVIATION : Confirmed by: Kamaljit Velasquez 31-Mar-2018 09:02:22
== END 2018-03-31 04:05 | disposition home or self-care (01) ==
LOC: ER 02:16
DX: R07.89 Other chest pain (principal); R07.81 Pleurodynia; W11.XXXA Fall on and from ladder, initial encounter; R42 Dizziness and giddiness; R11.10 Vomiting, unspecified; F41.9 Anxiety disorder, unspecified; G47.00 Insomnia, unspecified; Z79.899 Other long term (current) drug therapy; F17.200 Nicotine dependence, unspecified, uncomplicated; F12.10 Cannabis abuse, uncomplicated; Z88.5 Allergy status to narcotic agent; Z91.030 Bee allergy status
CPT/HCPCS: 71046; 81001; 93005; 93010; 99285

== ENCOUNTER 2018-12-20 21:18 | Emergency (ER) | payer SELFPAY ==
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
[2018-12-21 00:21] VITALS: BP 105/64
--- NOTE | 2018-12-21 01:18 | EKG REPORT ---
SEVERITY:- OTHERWISE NORMAL ECG - SINUS RHYTHM RIGHT AXIS DEVIATION : Confirmed by: Kriss Rico MD 21-Dec-2018 01:18:31
== END 2018-12-21 00:44 | disposition home or self-care (01) ==
LOC: ER 21:18
DX: R20.0 Anesthesia of skin (principal); R42 Dizziness and giddiness; F17.200 Nicotine dependence, unspecified, uncomplicated
CPT/HCPCS: 93005; 93010; 99284

== ENCOUNTER 2019-10-18 00:04 | Emergency (ER) | payer SELFPAY ==
[2019-10-18] MEDS ORDERED: PREDNISONE 20 MG TABLET PO ONE (06:21)
--- NOTE | 2019-10-18 06:24 | ER Document Report ---
ED Allergic Reaction - General Chief Complaint: Allergy Symptoms Stated Complaint: POSSIBLE ALLERGIC REACTION Time Seen by Provider: 10/18/19 05:27 Primary Care Provider: FLACA NULL MD [ACTIVE STAFF] - Follow up in 3-5 days Notes: 29-year-old male presents with generalized rash that started Friday. Patient states he just recently started omeprazole. Patient denies any dyspnea or lip/tongue/throat swelling. Patient states he has some nausea. TRAVEL OUTSIDE OF THE [place] IN LAST 30 DAYS: No - Related Data Allergies/Adverse Reactions: hydrocodone Allergy (Verified 05/28/17 14:12) alexey hips Allergy (Verified 05/28/17 14:12) Bee Sting Allergy (Uncoded 05/28/17 14:12) Home Medications: omeprazole Past Medical History - Social History Smoking Status: Current Every Day Smoker Chew tobacco use (# tins/day): No Frequency of alcohol use: drinks nightly Family History: Reviewed & Not Pertinent Patient has suicidal ideation: No Patient has homicidal ideation: No Renal/ Medical History: Denies: Hx Peritoneal Dialysis Musculoskeletal Medical History: Reports Hx Musculoskeletal Deformity, Reports Hx Musculoskeletal Trauma Psychiatric Medical History: Reports: Hx Anxiety, Hx Attention Deficit Hyperactivity Disorder, Hx Bipolar Disorder, Hx Depression Traumatic Medical History: Reports: Hx Fractures - coccyx Past Surgical History: Reports: Hx Orthopedic Surgery - Immunizations Immunizations up to date: Yes Hx Diphtheria, Pertussis, Tetanus Vaccination: Yes Review of Systems - Review of Systems Notes: Constitutional: Negative for fever. HENT: Negative for sore throat. Eyes: Negative for visual changes. Cardiovascular: Negative for chest pain. Respiratory: Negative for shortness of breath. Gastrointestinal: Negative for abdominal pain, vomiting or diarrhea. Genitourinary: Negative for dysuria. Musculoskeletal: Negative for back pain. Skin: Positive for rash. Neurological: Negative for headaches, weakness or numbness. 10 point ROS negative except as marked above and in HPI. Physical Exam - Vital signs Vitals: Temp Pulse Resp BP Pulse Ox 97.1 F 88 18 126/77 H 98 10/18/19 00:17 10/18/19 00:17 10/18/19 00:17 10/18/19 00:17 10/18/19 00:17 - Notes Notes: GENERAL: Well-appearing, well-nourished and in no acute distress. HEAD: Atraumatic, normocephalic. EYES: Extraocular movements intact, sclera anicteric, conjunctiva are normal. NECK: Normal range of motion, supple without lymphadenopathy or JVD. LUNGS: Breath sounds clear to auscultation bilaterally and equal. No wheezes rales or rhonchi. HEART: Regular rate and rhythm without murmurs, rubs or gallops. ABDOMEN: Soft, nontender. No guarding, no rebound. No masses appreciated. EXTREMITIES: Normal range of motion, no pitting or edema. No clubbing or cyanosis. NEUROLOGICAL: Cranial nerves II through XII grossly intact. Normal speech, normal gait. PSYCH: Normal mood, normal affect. SKIN: Rash noted to abdomen. Rash appears urticarial/hives. Course - Re-evaluation Re-evalutation: 10/18/19 possible allergic reaction noted to abdomen. Nontoxic, well-appearing. Patient recently started omeprazole. Patient speaks full sentences without difficulty. No tongue/throat/lip swelling. No accessory muscle use. Patient given prednisone prescription and instructed to take [id number] antihistamine. Patient given strict return precautions. Patient instructed to stop omeprazole and given prescription for Protonix instead. Patient given follow-up with PCP. All questions/concerns addressed prior to discharge. - Vital Signs Vital signs: Temp Pulse Resp BP Pulse Ox 97.8 F 85 20 114/72 97 10/18/19 06:35 10/18/19 06:35 10/18/19 06:35 10/18/19 06:35 10/18/19 06:35 Discharge - Discharge Clinical Impression: Rash Allergic reaction Qualifiers: Encounter type: initial encounter Qualified Code(s): T78.40XA - Allergy, unspecified, initial encounter GERD (gastroesophageal reflux disease) Qualifiers: Esophagitis presence: without esophagitis Qualified Code(s): K21.9 - Gastro- esophageal reflux disease without esophagitis Condition: Stable Disposition: HOME, SELF-CARE Instructions: Acute Allergic Reaction ([facility]), Corticosteroid Medication ([facility]) Additional Instructions: Please take prednisone as prescribed. Please take Benadryl, Maria Eugenia, Claritin, or Maria Eugenia for itching which is available [id number]. Please follow-up with primary care doctor listed in 3 to 5 days. Please return immediately to ER if you start having any worsening symptoms, including shortness of breath, lip/ tongue/throat swelling, worsening rash, chest pain, vomiting, or any other symptoms that are concerning to you. Prescriptions: Prednisone [Deltasone 20 mg Tablet] 1 tab PO DAILY 5 Days #10 tablet Pantoprazole Sodium [Protonix [address] Tablet] 20 mg PO QAM #14 tablet.dr Forms: Return to Work Referrals: FLACA NULL MD [ACTIVE STAFF] - Follow up in 3-5 days
[2019-10-18 06:36] VITALS: BP 114/72
== END 2019-10-18 06:48 | disposition home or self-care (01) ==
LOC: ER 00:04
DX: R21 Rash and other nonspecific skin eruption (principal); T78.40XA Allergy, unspecified, initial encounter; X58.XXXA Exposure to other specified factors, initial encounter; R11.0 Nausea; F17.200 Nicotine dependence, unspecified, uncomplicated; Z88.6 Allergy status to analgesic agent; Z88.5 Allergy status to narcotic agent; Z88.8 Allergy status to other drugs, medicaments and biological substances; Z91.030 Bee allergy status
CPT/HCPCS: 99283; J7512

== ENCOUNTER 2020-04-18 13:41 | Emergency (ER) | payer SELFPAY ==
[2020-04-18] MEDS ORDERED: KETOROLAC TROMETHAMINE INJ/PF 30 MG/1 ML SDV IV ONE (17:30)
[2020-04-18] MEDS ORDERED: NORMAL SALINE 1000 ML 1,000 ML IV ONE (17:30)
[2020-04-18 17:31] VITALS: BP 124/76
--- NOTE | 2020-04-18 17:31 | ER Document Report ---
ED General - General Chief Complaint: Pain All Over Stated Complaint: LEFT ARM PAIN,VOMITING,DIARRHEA Time Seen by Provider: 04/18/20 16:45 Mode of Arrival: Ambulatory Information source: Patient Notes: 29-year-old male with past medical history significant for GERD presents emergency room complaining of sharp shooting cramping pain in his legs, upper arms, "my whole body" for the past 10 days. He denies any trauma or injury. Denies chest pain, denies any shortness of breath, denies difficulty breathing. Has not taken any medications for symptoms. No recent travel. No COVID-19 exposure. Eating and drinking normally. States he has pain that radiates from the left side of his neck into his left arm. Complains of numbness to his left extremity but denies weakness. 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 No known ill contacts. No rashes, no known tick bites. Patient is right-handed. Patient drove self to the ER. TRAVEL OUTSIDE OF THE [place] IN LAST 30 DAYS: No - Related Data Allergies/Adverse Reactions: hydrocodone Allergy (Verified 05/28/17 14:12) alexey hips Allergy (Verified 05/28/17 14:12) Bee Sting Allergy (Uncoded 05/28/17 14:12) Past Medical History - General Information source: Patient - Social History Smoking Status: Former Smoker Frequency of alcohol use: None Drug Abuse: None Family History: Reviewed & Not Pertinent Patient has homicidal ideation: No Renal/ Medical History: Denies: Hx Peritoneal Dialysis Musculoskeletal Medical History: Reports Hx Musculoskeletal Deformity, Reports Hx Musculoskeletal Trauma Psychiatric Medical History: Reports: Hx Anxiety, Hx Attention Deficit Hyperactivity Disorder, Hx Bipolar Disorder, Hx Depression Traumatic Medical History: Reports: Hx Fractures - coccyx Past Surgical History: Reports: Hx Orthopedic Surgery - Immunizations Immunizations up to date: Yes Hx Diphtheria, Pertussis, Tetanus Vaccination: Yes Review of Systems - Review of Systems Constitutional: No symptoms reported Cardiovascular: No symptoms reported Respiratory: No symptoms reported Gastrointestinal: No symptoms reported Musculoskeletal: Muscle pain Skin: No symptoms reported Neurological/Psychological: Numbness -: Yes All other systems reviewed and negative Physical Exam - Vital signs Vitals: Temp 98.9 F 04/18/20 13:42 - General General appearance: Appears well, Alert In distress: Mild - HEENT Neck: Normal. No: Anterior cervical chain, Posterior cervical chain, Lymphadenopathy Notes: Positive left trapezius muscle spasms palpated. - Respiratory Respiratory status: No respiratory distress Chest status: Nontender Breath sounds: Normal Chest palpation: Normal - Cardiovascular Rhythm: Regular Heart sounds: Normal auscultation Murmur: No - Abdominal Inspection: Normal Distension: No distension Bowel sounds: Normal Tenderness: Nontender Organomegaly: No organomegaly - Extremities General upper extremity: Normal inspection, Nontender, Normal color, Normal ROM, Normal temperature General lower extremity: Normal inspection, Nontender, Normal color, Normal ROM, Normal temperature, Normal weight bearing. No: Bryanna's sign - Neurological Neuro grossly intact: Yes Cognition: Normal Orientation: AAOx4 [place] Coma Scale Eye Opening: Spontaneous [place] Coma Scale Verbal: Oriented Adalberto Coma Scale Motor: Obeys Commands [place] Coma Scale Total: 15 Speech: Normal Motor strength normal: LUE, RUE, LLE, RLE Sensory: Normal Notes: Player Services Representative strength is equal and adequate bilaterally. Full range of motion to all extremities. Positive bilateral radial and popliteal pulses. Reflexes equal and adequate to patella and brachial bilaterally able to determine between light and painful stimuli to both upper and lower extremities. Normal sensation. Neurovascularly and neurologically intact. - Skin Skin Temperature: Warm Skin Moisture: Dry Skin Color: Normal Course - Re-evaluation Re-evalutation: 04/18/20 18:48 Patient is resting comfortably states his pain has resolved. Reviewed all test results with patient. Counseled on the need to follow-up outpatient with a primary care physician for further testing and evaluation of his symptoms. He has no acute distress at this time. He is ambulatory with a steady gait. He is neurovascularly and neurologically intact. He was counseled he can take Tylenol and Motrin as needed for pain. Flexeril as prescribed. Aware that he cannot drive while taking the Flexeril. Patient was given strict return to the emergency room guidelines. Return for any new or worsening symptoms. All questions were answered. Patient verbalized understanding and agrees with plan of care. 04/18/20 18:49 - Vital Signs Vital signs: Temp Pulse Resp BP Pulse Ox 98.9 F 65 15 124/76 96 04/18/20 17:30 04/18/20 17:30 04/18/20 17:30 04/18/20 17:30 04/18/20 17:30 - Laboratory Result Diagrams: 04/18/20 17:38 04/18/20 17:38 Laboratory results interpreted by me: 04/18/20 04/18/20 17:38 17:38 Plt Count 137 L Carbon Dioxide 31 H - Diagnostic Test Radiology reviewed: Reports reviewed Discharge - Discharge Clinical Impression: Generalized pain, Muscle spasm Condition: Stable Disposition: HOME, SELF-CARE Instructions: Myalagia (Muscle Pain) ([facility]) Additional Instructions: Tylenol and/or Motrin as needed for pain. Flexeril as prescribed. Is important that you make an appointment with a primary care physician. On-call physician was provided for you. No driving while taking the Flexeril. Return for any new or worsening symptoms. Prescriptions: Cyclobenzaprine HCl [Flexeril 10 mg Tablet] 10 mg PO TIDP PRN #15 tab PRN Reason: Forms: Return to Work
[2020-04-18 17:53] LABS: ABSOLUTE LYMPHOCYTES (AUTO) 1.9 10^3/uL (0.5-4.7); ABSOLUTE MONOCYTES (AUTO) 0.3 10^3/uL (0.1-1.4); BASOPHILS % (AUTO) 0.7 % (0-2); EOSINOPHILS % (AUTO) 0.4 % (0-6); HEMOGLOBIN 16.5 g/dL (13.5-17.0); LYMPHOCYTES % (AUTO) 30.1 % (13-45); MEAN CORPUSCULAR HEMOGLOBIN 31.3 pg (27.0-33.4); MEAN CORPUSCULAR HGB CONC 33.8 g/dL (32.0-36.0); MEAN CORPUSCULAR VOLUME 93 fl (80-97); MONOCYTES % (AUTO) 5.6 % (3-13); PLATELET COUNT 137 10^3/uL (150-450); RED BLOOD COUNT 5.29 10^6/uL (4.35-5.55); RED CELL DISTRIBUTION WIDTH 13.8 % (11.5-14.0); SEGMENTED NEUTROPHILS % (AUTO) 63.2 % (42-78); TOTAL CELLS COUNTED % (AUTO) 100 %; WHITE BLOOD COUNT 6.3 10^3/uL (4.0-10.5)
--- NOTE | 2020-04-18 18:07 | RADIOLOGY REPORT (SQ) ---
EXAM DESCRIPTION: CT CERVICAL SPINE WITHOUT IMAGES COMPLETED DATE/TIME: 04/18/2020 5:53 pm REASON FOR STUDY: Paresthesia COMPARISON: None. TECHNIQUE: Axial images acquired through the cervical spine without intravenous contrast. Images re viewed with lung, soft tissue and bone windows. Reconstructed coronal and sagittal MPR images review ed. Images stored on PACS. All CT scanners at this facility use dose modulation, iterative reconstruction, and/or weight based d osing when appropriate to reduce radiation dose to as low as reasonably achievable (ALARA). [facility]: Dose Right [facility]: CareDose [facility]: Dose Right [facility]: Teradose 4D [facility]: [email or web address] RADIATION DOSE: CT Rad equipment meets quality standard of care and radiation dose reduction techniq ues were employed. CTDIvol: 18.2 mGy. DLP: 464 mGy-cm LIMITATIONS: None. FINDINGS: ALIGNMENT: Dextroconvex scoliosis. MINERALIZATION: Normal. VERTEBRAL BODIES: No fractures or dislocation. DISCS: No significant disc disease. FACETS, LATERAL MASSES, POSTERIOR ELEMENTS: No fractures. No dislocation. No acute findings. HARDWARE: None in the spine. VISUALIZED RIBS: No fractures. LUNG APICES AND SOFT TISSUES: No significant or acute findings. OTHER: No other significant finding. IMPRESSION: 1. Dextroconvex scoliosis. 2. No acute osseous findings. 3. If symptoms persist, additional imaging may be helpful. TECHNICAL DOCUMENTATION: JOB ID: [id number] Quality ID # [id number]: Final reports with documentation of one or more dose reduction techniques (e.g., Au tomated exposure control, adjustment of the mA and/or kV according to patient size, use of iterative reconstruction technique) 2010 [employer]- All Rights Reserved Reading location - IP/workstation name: [email or web address]
[2020-04-18 18:09] LABS: APPEARANCE,URINE CLEAR; BILIRUBIN,URINE NEGATIVE (NEGATIVE); COLOR,URINE YELLOW; GLUCOSE, URINE NEGATIVE (NEGATIVE); KETONES,URINE NEGATIVE (NEGATIVE); LEUKOCYTE ESTERASE,URINE NEGATIVE (NEGATIVE); NITRITE,URINE NEGATIVE (NEGATIVE); PROTEIN,URINE NEGATIVE (NEGATIVE); UROBILINOGEN,URINE NEGATIVE mg/dL (<2.0)
[2020-04-18 18:15] LABS: URINE AMPHETAMINES SCREEN NEGATIVE; URINE BARBITURATES SCREEN NEGATIVE; URINE BENZODIAZEPINES SCREEN NEGATIVE; URINE COCAINE SCREEN NEGATIVE; URINE MARIJUANA (THC) SCREEN NEGATIVE; URINE METHADONE SCREEN NEGATIVE; URINE PHENCYCLIDINE SCREEN NEGATIVE
[2020-04-18 18:22] LABS: ALKALINE PHOSPHATASE 91 U/L (38-126); ANION GAP 7 (5-19); ASPARTATE AMINO TRANSFERASE 24 U/L (17-59); BILIRUBIN,TOTAL 0.6 mg/dL (0.2-1.3); BLOOD UREA NITROGEN 9 mg/dL (7-20); CALCIUM 10.2 mg/dL (8.4-10.2); CARBON DIOXIDE 31 mmol/L (22-30); CHLORIDE 101 mmol/L (98-107); CREATINE KINASE 55 U/L (55-170); GLUCOSE 100 mg/dL (75-110); POTASSIUM 4.1 mmol/L (3.6-5.0); TOTAL PROTEIN 8.2 g/dL (6.3-8.2)
== END 2020-04-18 19:06 | disposition home or self-care (01) ==
LOC: ER 13:41
DX: M62.830 Muscle spasm of back (principal); M79.622 Pain in left upper arm; M79.621 Pain in right upper arm; M79.604 Pain in right leg; M79.605 Pain in left leg; M54.2 Cervicalgia; R20.0 Anesthesia of skin; Z88.6 Allergy status to analgesic agent; Z88.5 Allergy status to narcotic agent; Z91.030 Bee allergy status; Z91.048 Other nonmedicinal substance allergy status; Z87.891 Personal history of nicotine dependence
CPT/HCPCS: 99284; 96374; 36415; 82553; 82550; 85025; 80053; 81001; 80307; 72125; J1885; J7030; 96361